=== PATIENT | female | born 1965 | race Caucasian/White ===

== ENCOUNTER 2019-12-06 10:49 | Inpatient (IN) | payer OTHER ==
[~2019-12-06] VITALS: Ht 160 cm; Wt 66.3 kg
[2019-12-06] MEDS ORDERED: ZINC SULFATE 220mg CAP or TAB PO ONE ×2 (11:00→13:00)
[2019-12-06] MEDS ORDERED: methylPREDNISolone SOD SUCC 125 MG/2 ML VL IV ONE (11:00)
[2019-12-06] MEDS ORDERED: AZITHROMYCIN 500MG/ 250ML 250 ML IV ONE (11:00)
[2019-12-06] MEDS ORDERED: PANTOPRAZOLE 40 MG/10 ML VIAL INJ IV ONE (11:00)
[2019-12-06] MEDS ORDERED: hydrOXYchloroQUINE SULFATE 200 MG TAB PO ONE (11:00)
[2019-12-06] MEDS ORDERED: ASCORBIC ACID 500 MG TAB PO ONE (11:00)
[2019-12-06 11:33] LABS: Basophils # (auto) 0 10 ^3/uL (0-0.2); Basophils % (auto) 0.2 % (0.0-2.0); Eosinophils # (auto) 0 10 ^3/uL (0-0.8); Eosinophils % (auto) 0.2 % (0.0-7.0); Hematocrit 41.4 % (36.0-46.0); Lymphocytes % (auto) 18.5 % (10.0-50.0); Mean Corpuscular Hemoglobin 29.1 pg (28.0-32.0); Mean Corpuscular Hgb Conc. 33.8 g/dL (32.0-36.0); Mean Corpuscular Volume 86.1 fL (80.0-100.0); Monocytes # (auto) 0.3 10 ^3/uL (0-1.3); Monocytes % (auto) 4.9 % (0.0-12.0); Neutrophils # (auto) 3.9 10 ^3/uL (1.6-8.6); Neutrophils % (auto) 76.2 % (37.0-80.0); Nucleated Red Blood Cells % 0.1 %; Platelet Count (auto) 319 10^3/uL (140-450); Red Blood Cells 4.81 10^6/uL (4.0-5.20); Red Cell Distribution Width 13.2 % (11.8-14.3); White Blood Cell 5.2 10^3/uL (4.4-10.8)
[2019-12-06] MEDS ORDERED: ENOXAPARIN SOD 100 MG/1 ML SYRINGE SC ONE (11:45)
[2019-12-06 11:51] LABS: Albumin 2.7 g/dL (3.4-5.0); Anion Gap 9 (5-15); Blood Urea Nitrogen 10 mg/dL (7-18); Calcium 8.6 mg/dL (8.5-10.1); Carbon Dioxide 27 mmol/L (21-32); Chloride 101 mmol/L (98-107); Glucose 90 mg/dL (74-106); Potassium 3.3 mmol/L (3.5-5.1); Sodium 137 mmol/L (136-145)
[2019-12-06 11:58] LABS: Alanine Aminotransferase 52 U/L (13-56); Alkaline Phosphatase 79 U/L (45-117); Aspartate Aminotransferase 30 U/L (15-37); BUN/Creatinine Ratio 15.4; Bilirubin, Total 0.5 mg/dL (0.2-1.0); CRP High Sensitivity 9.58 mg/dL (< 0.3); GFR African American 123 mL/min; GFR Non-African American 102 mL/min; Lactate Dehydrogenase 336 U/L (84-246); Total Protein 6.8 g/dL (6.4-8.2)
[2019-12-06] MEDS ORDERED: MORPHINE SULF INJ 2 MG/ML SYRINGE 1ML IV PRN ×2 (12:15→12:45)
[2019-12-06] MEDS ORDERED: NITROGLYCERIN 0.4 MG SL TAB SL PRN (12:15)
[2019-12-06] MEDS: SODIUM CHLORIDE 0.9% 1,000 ML IV SCH (12:32)
[2019-12-06] MEDS ORDERED: LACTULOSE 20Gm/30ML SOLN PO PRN (12:45)
[2019-12-06] MEDS ORDERED: traMADol HCL 50 MG TAB PO PRN (12:45)
[2019-12-06] MEDS ORDERED: TEMAZEPAM 15 MG CAP PO PRN (12:45)
[2019-12-06] MEDS ORDERED: PROMETHAZINE HCL 25 MG/ML 1ML IV PRN (12:45)
[2019-12-06] MEDS ORDERED: cefTRIAXone 1GM/50ML D5W 50 ML IV ONE (13:00)
[2019-12-06] MEDS ORDERED: ENOXAPARIN SOD 80 MG/0.8ML SYRINGE SC ONE (13:00)
[2019-12-06] MEDS ORDERED: CHOLECALCIFEROL (VITD3) 1,000UNIT=25mCg TAB PO ONE (13:00)
[2019-12-06] MEDS ORDERED: POTASSIUM EFFERVESENT TAB 25 MEQ PO ONE (13:45)
[2019-12-06] MEDS: ALBUTEROL SULF HFA 90MCG INH 200DOSE IN SCH ×2 (14:00→23:20)
[2019-12-06 22:00] VITALS: BP 117/72
[2019-12-06] MEDS: ENOXAPARIN SOD 80 MG/0.8ML SYRINGE SC SCH (23:13)
[2019-12-06] MEDS: DexAMETHasone SOD PHOS 4 MG/1ML SDV INJ IV SCH (23:13)
[2019-12-06] MEDS: DOXYCYCLINE 100 MG TAB/CAP PO SCH (23:13)
[2019-12-06] MEDS: BUDESONIDE (INHALATION) 180 MCG IH IN SCH (23:20)
[2019-12-07] VITALS (7 sets, daily range): BP systolic 103–124; BP diastolic 57–76
[2019-12-07] MEDS: SODIUM CHLORIDE 0.9% 1,000 ML IV SCH (03:16)
[2019-12-07 06:12] LABS: Basophils # (auto) 0 10 ^3/uL (0-0.2); Basophils % (auto) 0.1 % (0.0-2.0); Eosinophils # (auto) 0 10 ^3/uL (0-0.8); Hematocrit 38.9 % (36.0-46.0); Hemoglobin 13.3 g/dL (12.2-16.2); Lymphocytes # (auto) 0.8 10 ^3/uL (0.4-5.4); Lymphocytes % (auto) 17.6 % (10.0-50.0); Mean Corpuscular Hemoglobin 29.3 pg (28.0-32.0); Mean Corpuscular Hgb Conc. 34.3 g/dL (32.0-36.0); Mean Corpuscular Volume 85.4 fL (80.0-100.0); Monocytes # (auto) 0.2 10 ^3/uL (0-1.3); Monocytes % (auto) 3.7 % (0.0-12.0); Neutrophils # (auto) 3.5 10 ^3/uL (1.6-8.6); Neutrophils % (auto) 78.6 % (37.0-80.0); Nucleated Red Blood Cells % 0.3 %; Platelet Count (auto) 361 10^3/uL (140-450); Red Blood Cells 4.55 10^6/uL (4.0-5.20); Red Cell Distribution Width 13.2 % (11.8-14.3); White Blood Cell 4.4 10^3/uL (4.4-10.8)
[2019-12-07 06:22] LABS: Potassium 3.6 mmol/L (3.5-5.1)
[2019-12-07 06:29] LABS: Albumin 2.5 g/dL (3.4-5.0); BUN/Creatinine Ratio 23.1; Bilirubin, Total 0.4 mg/dL (0.2-1.0); Calcium 8.5 mg/dL (8.5-10.1); Total Protein 6.5 g/dL (6.4-8.2)
[2019-12-07] MEDS: ALBUTEROL SULF HFA 90MCG INH 200DOSE IN SCH ×3 (07:15→22:00)
[2019-12-07] MEDS ORDERED: cefTRIAXone 1GM/50ML D5W 50 ML IV SCH (09:00)
[2019-12-07] MEDS: DexAMETHasone SOD PHOS 4 MG/1ML SDV INJ IV SCH ×2 (11:12→22:30)
[2019-12-07] MEDS: BUDESONIDE (INHALATION) 180 MCG IH IN SCH ×2 (11:12→22:00)
[2019-12-07] MEDS: cefTRIAXone 1GM/50ML D5W 50 ML IV SCH (11:12)
[2019-12-07] MEDS: ZINC SULFATE 220mg CAP or TAB PO SCH (11:13)
[2019-12-07] MEDS: DOXYCYCLINE 100 MG TAB/CAP PO SCH ×2 (11:13→22:30)
[2019-12-07] MEDS: CHOLECALCIFEROL (VITD3) 1,000UNIT=25mCg TAB PO SCH (11:13)
[2019-12-07] MEDS: ENOXAPARIN SOD 80 MG/0.8ML SYRINGE SC SCH ×2 (11:15→22:30)
[2019-12-07] MEDS ORDERED: DEXTROSE (50%) 50ML SYRG IV PRN (17:30)
--- NOTE | 2019-12-07 19:25 | NUR ---
Opening Shift Note Assumed care of patient, awake and alert. No S/S of distress/SOB or pain. Instructed on POC and to call for assist PRN, will continue to monitor for changes Q1hr and PRN.bed in low position and call light within reach.
[2019-12-07] MEDS: ACCU-CHEK COMFORT CURVE STRIP VI SCH (22:00)
[2019-12-07] MEDS: InsuLIN REG 1unit/0.01ml Soln (100units/ml) SC SCH (22:30)
[2019-12-08 05:00] VITALS: BP 113/72
--- NOTE | 2019-12-08 06:08 | NUR ---
patient educated on how to use is patient verbalized understanding
[2019-12-08] MEDS: InsuLIN REG 1unit/0.01ml Soln (100units/ml) SC SCH ×4 (06:27→21:48)
[2019-12-08] MEDS: ACCU-CHEK COMFORT CURVE STRIP VI SCH ×4 (06:27→21:48)
--- NOTE | 2019-12-08 06:55 | NUR ---
patient rounds patient is in bed resting denies sob distress or pain.
--- NOTE | 2019-12-08 07:14 | NUR ---
report given to dayshift rn patient is alert and awake denies sob distress or pain
[2019-12-08] MEDS: ALBUTEROL SULF HFA 90MCG INH 200DOSE IN SCH ×3 (08:59→21:55)
[2019-12-08] MEDS: BUDESONIDE (INHALATION) 180 MCG IH IN SCH ×2 (08:59→21:55)
[2019-12-08 09:00] VITALS: BP 105/69
[2019-12-08] MEDS: cefTRIAXone 1GM/50ML D5W 50 ML IV SCH (09:51)
[2019-12-08] MEDS: DOXYCYCLINE 100 MG TAB/CAP PO SCH ×2 (09:53→21:47)
[2019-12-08] MEDS: ZINC SULFATE 220mg CAP or TAB PO SCH (09:53)
[2019-12-08] MEDS: FAMOTIDINE 20 MG TAB PO SCH (09:53)
[2019-12-08] MEDS: CHOLECALCIFEROL (VITD3) 1,000UNIT=25mCg TAB PO SCH (09:54)
[2019-12-08] MEDS: ENOXAPARIN SOD 80 MG/0.8ML SYRINGE SC SCH ×2 (09:54→21:47)
[2019-12-08] MEDS: DexAMETHasone SOD PHOS 10MG/1ML VIAL INJ IV SCH (10:49)
[2019-12-08 13:00] VITALS: BP 105/63
--- NOTE | 2019-12-08 15:00 | NUR ---
PATIENT WAS GIVEN FACT SHEET, DISCUSSED SIDE EFFECTS, READ TOGETHER, PATIENT INFORMED OF POTENTIAL RISKS AND SIDE EFFECTS, INFORMED OF ALTERNATIVE RISK/BENEFITS, INFORMED THAT REMDESIVIR IS NOT AN FDA APPROVED DRUG AND IS BEING USED UNDER EUA, INFORMD PATIENT THAT SHE HAS OPTION TO DECLINE OR ACCEPT.
--- NOTE | 2019-12-08 15:50 | NUR ---
New IV inserted, to left hand 22guage. Old IV dC'd ice back and heat pack given to patient to rotate. site has about a 1inch diameter pink area. Infusion restarted. Addendum: 12/08/19 at 1852 by Jodie Doyle RN AMMEND TIME TO 1849
[2019-12-08 17:00] VITALS: BP 117/65
[2019-12-08] MEDS ORDERED: REMDESIVIR 200 MG in NS 210ml LOADING DOSE ADULT IV ONE (18:00)
--- NOTE | 2019-12-08 18:15 | NUR ---
pre remdesevir vitals: 110/71, HR 68, Sp02 97% on 10L oximeter, temp 98.7F,
--- NOTE | 2019-12-08 18:38 | NUR ---
Iv line infiltrated. Stopped infusion only 30-40 ML infused. Will start new IV. Addendum: 12/08/19 at 1851 by Jodie Doyle RN Mostly NS was infused at infiltrated site.
--- NOTE | 2019-12-08 18:41 | NUR ---
Nurse at bedside to start new Iv.
--- NOTE | 2019-12-08 19:05 | NUR ---
15 min vitals 120/72, 93% on 10L oximyzer,71 HR temp 98.8F patient tolerating well no s/s at this point.
--- NOTE | 2019-12-08 20:30 | NUR ---
Remdesivir Infused 50 mL NS infused. VS: T 97.6, HR 66, RR 20, 94%, BP 117/72. Patient A&Ox4 without s/s of distress at this time.
[2019-12-08 22:00] VITALS: BP 117/72
[2019-12-09 05:00] VITALS: BP 119/73
--- NOTE | 2019-12-09 06:30 | NUR ---
IV insertion IV access obtained, via clean sterile technique by inserting 22 gauge catheter at the left FA after one attempt. IV secured properly. No trauma to site. Patient tolerated well.
[2019-12-09] MEDS: ALBUTEROL SULF HFA 90MCG INH 200DOSE IN SCH ×3 (06:32→21:29)
[2019-12-09] MEDS: ACCU-CHEK COMFORT CURVE STRIP VI SCH ×4 (06:32→21:30)
[2019-12-09] MEDS: InsuLIN REG 1unit/0.01ml Soln (100units/ml) SC SCH ×4 (06:33→21:52)
--- NOTE | 2019-12-09 06:40 | NUR ---
IV removal Patient c/o pain to the IV site located at the left wrist/hand. IV DC'd with clean sterile technique, catheter fully intact. Pressure dressing applied to site. Patient tolerated well.
[2019-12-09] MEDS: BUDESONIDE (INHALATION) 180 MCG IH IN SCH ×2 (06:41→21:28)
[2019-12-09 09:00] VITALS: BP 110/64
[2019-12-09] MEDS: ZINC SULFATE 220mg CAP or TAB PO SCH (09:23)
[2019-12-09] MEDS: DexAMETHasone SOD PHOS 10MG/1ML VIAL INJ IV SCH (09:23)
[2019-12-09] MEDS: FAMOTIDINE 20 MG TAB PO SCH (09:23)
[2019-12-09] MEDS: cefTRIAXone 1GM/50ML D5W 50 ML IV SCH ×2 (09:23→21:29)
[2019-12-09] MEDS: DOXYCYCLINE 100 MG TAB/CAP PO SCH ×2 (09:24→21:29)
[2019-12-09] MEDS: CHOLECALCIFEROL (VITD3) 1,000UNIT=25mCg TAB PO SCH (09:24)
[2019-12-09] MEDS: ENOXAPARIN SOD 80 MG/0.8ML SYRINGE SC SCH ×2 (09:33→21:29)
--- NOTE | 2019-12-09 12:44 | NUR ---
Est energy needs 1059-4928 kcal (25-30 kcal/kg BW 70.4kg) Est protein needs 70-84g (1-1.2g/kg BW 70.4kg) will reassess prn. Addendum: 12/09/19 at [address] Amended: Links added.
[2019-12-09 13:00] VITALS: BP 115/68
--- NOTE | 2019-12-09 15:18 | NUR ---
Patient was offered supplies for bed bath, offered by BRIMMING MACHINE OPERATOR to wash hair, patient declined. Patient stated "no, I'll wait until another day".
[2019-12-09 17:00] VITALS: BP 111/70
[2019-12-09] MEDS ORDERED: FUROSEMIDE 40 MG/4 ML VIAL IV ONE (17:00)
[2019-12-09] MEDS ORDERED: POTASSIUM EFFERVESENT TAB 25 MEQ PO ONE (17:00)
[2019-12-09] MEDS: REMDESIVIR 100mg in NS 230ml DAILYx4DAYS (NO VENT) IV SCH (17:26)
--- NOTE | 2019-12-09 18:42 | NUR ---
Patient now asking for Lovenox, however it is too close to PM dose. Talked to patient and she is agreeable to waiting until PM dose.
--- NOTE | 2019-12-09 19:00 | NUR ---
per patient she takes 100 MCG levothyroxine QAM
--- NOTE | 2019-12-09 19:25 | NUR ---
Opening shift note Assumed care of patient from day RNJodie. Patient A&Ox4, respirations even and non-labored with no s/s of distress. Discussed POC with patient who asked questions and verbalized understanding. IV patent and intact. Patient oxymizer in place at 5L. Bed in lowest locked position with 2 side rails up, call light within reach. Will continue to monitor.
[2019-12-09 19:33] VITALS: BP 111/70
[2019-12-09 22:00] VITALS: BP 102/63
[2019-12-10 05:00] VITALS: BP 119/79
[2019-12-10 06:18] LABS: Hematocrit 39.7 % (36.0-46.0); Hemoglobin 13.3 g/dL (12.2-16.2); Mean Corpuscular Hemoglobin 28.6 pg (28.0-32.0); Mean Corpuscular Hgb Conc. 33.4 g/dL (32.0-36.0); Mean Corpuscular Volume 85.5 fL (80.0-100.0); Platelet Count (auto) 412 10^3/uL (140-450); Red Blood Cells 4.64 10^6/uL (4.0-5.20); Red Cell Distribution Width 13.4 % (11.8-14.3); White Blood Cell 6.9 10^3/uL (4.4-10.8)
[2019-12-10] MEDS: LEVOTHYROXINE SODIUM 100 MCG TAB PO SCH (06:36)
[2019-12-10] MEDS: ACCU-CHEK COMFORT CURVE STRIP VI SCH ×4 (06:36→21:26)
[2019-12-10 06:37] LABS: Albumin 2.7 g/dL (3.4-5.0); Calcium 8.4 mg/dL (8.5-10.1); Potassium 3.7 mmol/L (3.5-5.1)
[2019-12-10] MEDS: InsuLIN REG 1unit/0.01ml Soln (100units/ml) SC SCH ×4 (06:37→21:59)
[2019-12-10 06:41] LABS: BUN/Creatinine Ratio 27.9; Bilirubin, Total 0.4 mg/dL (0.2-1.0)
[2019-12-10] MEDS: BUDESONIDE (INHALATION) 180 MCG IH IN SCH ×2 (06:55→22:09)
--- NOTE | 2019-12-10 07:00 | NUR ---
Opening Shift Note Assumed care of patient, awake and alert, patient ambulated to bathroom. No S/S of distress/SOB or pain. Instructed on POC and to call for assist PRN, will continue to monitor for changes Q1hr and PRN.
[2019-12-10 07:08] LABS: Band Neutrophils % (manual) 0; Basophils % (manual) 0 (0.0-2.0); Blast Cells 0; Eosinophils % (manual) 0 (0-7); Promyelocytes % 0; Reactive Lymphocytes 0
[2019-12-10 07:53] LABS: Lymphocytes % (manual) 32 (10.0-50.0); Metamyelocytes % 4; Monocytes % (manual) 1 (0-12); Myelocytes % 2
[2019-12-10] MEDS: ALBUTEROL SULF HFA 90MCG INH 200DOSE IN SCH ×3 (08:30→22:09)
--- NOTE | 2019-12-10 08:30 | NUR ---
RECEIVED REPORT REPORT RECEIVED FROM COLLEEN WOODARD. PT IS ALERT AND AWAKE WITH EVEN AND UNLABORED RESPIRATIONS. PT IS LAYING IN BED WITH EVEN AND UNLABORED RESPIRATIONS. PT IS ON 5 L OXYMIZER WITH EVEN AND UNLABORED RESPIRATIONS. BED IS IN LOWEST LOCKED POSITION, SIDE RAILS UP X2, AND CALL LIGHT IS WITHIN REACH. PT UPDATED ON POC AND ENCOURAGED TO CALL NEEDED. WILL CONTINUE TO MONITOR Q1H AND PRN.
[2019-12-10 09:15] VITALS: BP 102/63
[2019-12-10] MEDS: DexAMETHasone SOD PHOS 10MG/1ML VIAL INJ IV SCH (10:30)
[2019-12-10] MEDS: FUROSEMIDE 40 MG/4 ML VIAL IV SCH (10:30)
[2019-12-10] MEDS: ZINC SULFATE 220mg CAP or TAB PO SCH (10:31)
[2019-12-10] MEDS: cefTRIAXone 1GM/50ML D5W 50 ML IV SCH (10:31)
[2019-12-10] MEDS: POTASSIUM EFFERVESENT TAB 25 MEQ PO SCH (10:32)
[2019-12-10] MEDS: FAMOTIDINE 20 MG TAB PO SCH (10:32)
[2019-12-10] MEDS: DOXYCYCLINE 100 MG TAB/CAP PO SCH ×2 (10:32→21:26)
[2019-12-10] MEDS: CHOLECALCIFEROL (VITD3) 1,000UNIT=25mCg TAB PO SCH (11:59)
[2019-12-10] MEDS: ENOXAPARIN SOD 100 MG/1 ML SYRINGE SC SCH ×2 (12:00→21:26)
--- NOTE | 2019-12-10 12:08 | NUR ---
Rounds Patient awake and alert sitting up in bed comfortably. Pt just returned from ambulating to the restroom. Pt remains on 5 L Oxymizer, will attempt to titrate down per md orders. Pt has even and unlabored respirations with No S/S of distress/SOB or pain at this time. Will continue to monitor changes q1hr and PRN.
[2019-12-10 13:22] VITALS: BP 93/64
--- NOTE | 2019-12-10 13:47 | NUR ---
1230 12/10/2019 - Faxed to [facility] at [phone] face sheet, order for home oxygen , H/P, labs, meds, progress notes, blood gas results. Pending approval and delivery.
--- NOTE | 2019-12-10 16:33 | NUR ---
1625 12/10/19 Contacted [facility] at [phone] regarding status of DME, spoke with asset management analyst Catarina who stated the complex case manager assigned is Mayte and she it is pending approval.
[2019-12-10 17:00] VITALS: BP 92/58
[2019-12-10] MEDS: REMDESIVIR 100mg in NS 230ml DAILYx4DAYS (NO VENT) IV SCH (18:10)
--- NOTE | 2019-12-10 19:20 | NUR ---
Opening shift note Assumed care of patient from day RNKarli. Patient A&Ox4, respirations even and non-labored with no s/s of distress. Discussed POC, proning during sleep at night, and oxygen weaning. Patient verbalized understanding and oxygen currently set at 3.5L on oxymizer. Remdesivir currently infusing. Bed in lowest locked position with 2 side rails up, call light within reach. Will continue to monitor.
[2019-12-10 22:00] VITALS: BP 94/56
--- NOTE | 2019-12-10 22:00 | NUR ---
Remdesivir infused. Flushed with 50 mL of NS. Patient ambulated to the bathroom and returned. VS: T 97.6, HR 68, RR 18, BP 94/56, O2sat 92%
--- NOTE | 2019-12-11 01:25 | NUR ---
Patient oxygen saturation assessed Patient in prone position. O2sat at 95% on 3.5L. Decreased oxygen to 3L. Patient tolerating prone position well at this time. Will continue to monitor.
--- NOTE | 2019-12-11 02:57 | NUR ---
Oxygen saturation reassessed Patient on 3L oxymizer, oxygen saturation at 97%. Reduced oxygen to 2.5L. Will continue to monitor.
--- NOTE | 2019-12-11 04:01 | NUR ---
HEART RATE 48 Patient sleeping and woke up with the placement of the pulse oximeter. HR increased to 82, O2sat at 94% on 2.5L. Patient A&Ox4 without s/s of distress or difficulty breathing. Will continue to monitor.
[2019-12-11 06:00] VITALS: BP 102/74
[2019-12-11] MEDS: LEVOTHYROXINE SODIUM 100 MCG TAB PO SCH (06:37)
[2019-12-11] MEDS: ACCU-CHEK COMFORT CURVE STRIP VI SCH ×4 (06:37→21:37)
[2019-12-11] MEDS: InsuLIN REG 1unit/0.01ml Soln (100units/ml) SC SCH ×4 (06:37→21:37)
--- NOTE | 2019-12-11 07:25 | NUR ---
Opening Shift Note Assumed care of patient, pt awake and alert sitting up in bed. Patient is on 3 L Oxymizer with even and unlabored respirations. No S/S of distress/SOB or pain. Bed is in lowest locked, position, side rails up, and call light is within reach. Instructed on POC and to call for assist PRN, will continue to monitor for changes Q1hr and PRN.
[2019-12-11 09:00] VITALS: BP 92/61
[2019-12-11] MEDS: BUDESONIDE (INHALATION) 180 MCG IH IN SCH ×2 (09:47→23:55)
[2019-12-11] MEDS: ALBUTEROL SULF HFA 90MCG INH 200DOSE IN SCH ×3 (09:47→23:55)
[2019-12-11] MEDS: DexAMETHasone SOD PHOS 10MG/1ML VIAL INJ IV SCH (09:59)
[2019-12-11] MEDS: ZINC SULFATE 220mg CAP or TAB PO SCH (10:00)
[2019-12-11] MEDS: DOXYCYCLINE 100 MG TAB/CAP PO SCH (10:01)
[2019-12-11] MEDS: FAMOTIDINE 20 MG TAB PO SCH (10:01)
[2019-12-11] MEDS: POTASSIUM EFFERVESENT TAB 25 MEQ PO SCH (10:01)
[2019-12-11] MEDS: FUROSEMIDE 40 MG/4 ML VIAL IV SCH (10:01)
[2019-12-11] MEDS: ENOXAPARIN SOD 80 MG/0.8ML SYRINGE SC SCH ×3 (11:54→22:00)
[2019-12-11] MEDS: CHOLECALCIFEROL (VITD3) 1,000UNIT=25mCg TAB PO SCH (11:54)
--- NOTE | 2019-12-11 12:25 | NUR ---
Rounds Patient awake and alert laying in beds. Pt encouraged to prone as tolerated. pt stated she prefers to do it at night. Pt encouraged to utilize IS as directed. Pt verbalized understanding. No S/S of distress/SOB or pain at this time. Will continue to monitor for changes q1hr and PRN.
[2019-12-11 13:00] VITALS: BP 99/60
--- NOTE | 2019-12-11 14:20 | NUR ---
Oxygen titrated down Pt titrated down to 2 L NC as per MD orders. Pt tolerating well, o2 saturation is 93%. Patient educated to call if any symptoms of respiratory distress occur. Patient verbalized understanding. Will continue to monitor q1h and prn.
[2019-12-11 17:00] VITALS: BP 90/56
[2019-12-11] MEDS: REMDESIVIR 100mg in NS 230ml DAILYx4DAYS (NO VENT) IV SCH (18:18)
--- NOTE | 2019-12-11 20:06 | NUR ---
open note assumed care of pt upon entering room pt awake alert and oriented x4. pt on 2L nc no distress noted or expressed. pt denies any pain. pt oriented to this nurse and updated on plan of care. pt bed locked, low and 2x rails up. pt encouraged to call as needed. this nurse to round q1hr and prn. call light in reach.
[2019-12-11 22:00] VITALS: BP 99/70
[2019-12-12 05:00] VITALS: BP 98/54
[2019-12-12] MEDS: ACCU-CHEK COMFORT CURVE STRIP VI SCH ×3 (06:35→17:00)
[2019-12-12] MEDS: InsuLIN REG 1unit/0.01ml Soln (100units/ml) SC SCH ×3 (06:35→17:00)
[2019-12-12] MEDS: LEVOTHYROXINE SODIUM 100 MCG TAB PO SCH (06:35)
[2019-12-12] MEDS: BUDESONIDE (INHALATION) 180 MCG IH IN SCH (08:55)
[2019-12-12] MEDS: ALBUTEROL SULF HFA 90MCG INH 200DOSE IN SCH ×2 (08:55→14:52)
[2019-12-12 09:00] VITALS: BP 100/60
[2019-12-12] MEDS: DexAMETHasone SOD PHOS 10MG/1ML VIAL INJ IV SCH (09:16)
[2019-12-12] MEDS: CHOLECALCIFEROL (VITD3) 1,000UNIT=25mCg TAB PO SCH (09:17)
[2019-12-12] MEDS: FAMOTIDINE 20 MG TAB PO SCH (09:17)
[2019-12-12] MEDS: POTASSIUM EFFERVESENT TAB 25 MEQ PO SCH (09:17)
[2019-12-12] MEDS: FUROSEMIDE 40 MG/4 ML VIAL IV SCH (09:17)
[2019-12-12] MEDS: ZINC SULFATE 220mg CAP or TAB PO SCH (09:17)
[2019-12-12] MEDS: ENOXAPARIN SOD 80 MG/0.8ML SYRINGE SC SCH (10:00)
--- NOTE | 2019-12-12 10:30 | NUR ---
PHARMACY CALLED ABOUT REMDESEVIR, PATIENT TO TAKE AT 1600 THEN DC HOME.
--- NOTE | 2019-12-12 11:02 | NUR ---
assessment Patient is a 54 year old female who is alert and oriented. Patients cognitive abilities are intact. Prior to admission patient lived home with family and functioned independently. Patient informed me she is able to care for her own ADLs. Per patient she will return home to her prior living arrangements post discharge and family will transport her home. Patient informed me she had went to [facility] and they ordered home oxygen for her. Patients PCP is Dr Tracy at [facility]. Patient has a ss consult for home oxygen. I have notified [facility] gearcase assembler to let [facility] know and see if the liter flow is the same. Roxana informed me she will notify [facility] gearcase assembler. Patient informed me she will have a place to quarantine once she returns home. Patient has no safety issues regarding returning home. I informed patient she has a right to speak to a social media marketing analyst regarding all care. I informed patient she has a right to participate in any and all discharge planning. Patient does not have a POA and advanced directive. I have offered patient information on POA and advanced directives. I informed the patient the advantages and benefits of having an Advanced Directive. Patient verbalized understanding and agreed to discharge plan. Addendum: 12/12/19 at 1107 by Marisa CONWAY Amended: Links added.
[2019-12-12 12:43] VITALS: BP 94/62
--- NOTE | 2019-12-12 14:04 | NUR ---
1145 12/12/19 - Contacted [facility] at [phone] requesting update on request for home oxygen, spoke with technical data analyst Kristopher who requested to have documents refaxed due to fax machine malfunction. I refaxed request for DME. Pending review and authorization.
--- NOTE | 2019-12-12 14:23 | NUR ---
lOVENOX STILL NOT AVAILABLE, PHARMACY STATES THAT THEY HAVE NOT GOTTEN THE SHIPMENT IN YET.
--- NOTE | 2019-12-12 16:09 | NUR ---
PER PHARMACY MEDICATION ON THE WAY..
--- NOTE | 2019-12-12 16:12 | NUR ---
1550 12/12/19 - Contacted [facility] at [phone], requesting authorization for continued inpatient stay and update on pending DME order. Spoke with circulation analyst Shanda who stated comp field case manager Mayte had reviewed order and sent it to the DME department. Shanda stated that she could not provide time frame for delivery to patient. Shanda did provide authorization [id number] for continued inpatient stay.
[2019-12-12] MEDS: REMDESIVIR 100mg in NS 230ml DAILYx4DAYS (NO VENT) IV SCH (16:18)
--- NOTE | 2019-12-12 16:35 | NUR ---
Nutrition Followup Notes Pt wt is 66.3 kg Pt is positive for COVID. Pt is with a Regular diet, appetite is poor aeb ave 42% PO intake over 3 meals. Pt with no noted distress per RN doc. Will continue to monitor PO status, skin status, pertinent labs and weight trends. Will f/u in 3-5 days. Est energy needs 3623-8783 kcal (25-30 kcal/kg BW 70.4kg) Est protein needs 70-84g (1-1.2g/kg BW 70.4kg) will reassess prn. LABS: ALB 2.7 L GI: Pt had 3 BM on 12/10 per RN doc. BS: 19 low risk. Refer to wound assessment report for full details. PES: Overweight r/t caloric intake in excess of needs aeb pt with BMI of 27.5kg/m2 Comments 1) Continue to monitor po intake, labs, skin 2) refer pt to [facility] on DC 3) Continue current plan of care
[2019-12-12 16:40] VITALS: BP 96/59
--- NOTE | 2019-12-12 16:58 | NUR ---
Per patient she has o2 at home "2 tanks, a concentrator, and a tank to re-fill the oxygen, and all the supplies", patient states Paul sent them home with her during her last ER visit before being hospitalized here.
[2019-12-12] MEDS ORDERED: METH4PAK PO (17:12)
[2019-12-12] MEDS ORDERED: ZINC220T6 PO (17:12)
[2019-12-12] MEDS ORDERED: ASCO100076 PO (17:12)
[2019-12-12] MEDS ORDERED: FURO1TAB33 PO (17:24)
[2019-12-12] MEDS ORDERED: POTA1TAB61 PO (17:24)
--- NOTE | 2019-12-12 18:00 | NUR ---
patient given all Dc instructions, IV discontinued, patient tele box returned to monitor techs, patient verbalized all DC instructions. Patient anxious to leave the building, however multiple patients are being taken out for discharge per protocol with security and housekeeping present, patient informed, patient verbalized understanding.
--- NOTE | 2019-12-12 18:20 | NUR ---
Written prescription for pulmicort given to patient.
--- NOTE | 2019-12-12 18:45 | NUR ---
Patient taken out via wheelchair with all belongings. Patient has oxygen tank here that family brought, COURT RECORDING MONITOR connected patient and took patient out to family with o2 on.
== END 2019-12-12 18:53 | disposition home or self-care (01) | DRG 177 ==
LOC: EDBD 10:49 → ER 10:49 → TELE 10:50 → TELE-EAST 21:10
PROVIDERS: ADMIT Internal Medicine; ATTEND Internal Medicine
DX: U07.1 COVID-19 (principal); J12.89 Other viral pneumonia; J96.01 Acute respiratory failure with hypoxia; E03.9 Hypothyroidism, unspecified; R74.0 Nonspecific elevation of levels of transaminase and lactic acid dehydrogenase [LDH]; I45.81 Long QT syndrome; E87.6 Hypokalemia; Z82.49 Family history of ischemic heart disease and other diseases of the circulatory system; Z87.891 Personal history of nicotine dependence; Z90.710 Acquired absence of both cervix and uterus; Z79.899 Other long term (current) drug therapy
CPT/HCPCS: 36415; 36600; 71045; 80053; 82728; 82805; 82962; 83605; 83615; 83735; 84443; 84484; 85007; 85025; 85027; 85379; 86141; 87040; 93005; 94640; 96372; 96374; C9113; G0378; J0696; J1100; J1815